=== PATIENT | female | born 1940 | race Caucasian/White ===

== ENCOUNTER 2024-02-15 11:03 | Emergency (ER) | payer OTHER, MEDICARE ==
[2024-02-15 11:12] VITALS: BMI 29.2
[2024-02-15] MEDS ORDERED: ACETAMINOPHEN INJECTION 100 ML ONE (12:39)
[2024-02-15] MEDS: ACETAMINOPHEN 1000 MG/100 ML BAG IVPB ONE (12:46)
[2024-02-15 13:44] LABS: INR 1.04 (0.83-1.09); PROTHROMBIN TIME (PATIENT) 11.7 SEC (9.7-13.0)
[2024-02-15 13:47] LABS: ACTIVATED PTT 28.2 SECONDS (25.2-36.5)
[2024-02-15 13:50] LABS: BASO % 0.3 % (0-2.0); EOS % 0.1 % (0-4.5); HEMATOCRIT 37.9 % (32.4-45.2); HEMOGLOBIN 12.3 GM/dL (10.7-15.3); LYMPH % 8.2 % (8-40); MCH 28.5 pg (25.7-33.7); MCHC 32.3 g/dl (32.0-36.0); MEAN CELL VOLUME 88.1 fl (80-96); MEAN PLT VOLUME 9.2 fl (7.5-11.1); NEUT % 83.4 % (42.8-82.8); PLATELET COUNT 191 10^3/uL (134-434); RDW 14.6 % (11.6-15.6); WHITE BLOOD COUNT 8.2 K/mm3 (4.0-10.0)
[2024-02-15 13:57] LABS: POTASSIUM 3.8 mmol/L (3.5-5.1)
[2024-02-15 14:00] LABS: CALCIUM 8.9 mg/dL (8.5-10.1)
[2024-02-15 14:01] LABS: ALBUMIN 3.6 g/dl (3.4-5.0); BLOOD UREA NITROGEN 9.6 mg/dL (7-18)
[2024-02-15 14:04] LABS: CREATININE 0.7 mg/dL (0.55-1.3)
[2024-02-15 14:05] LABS: BILIRUBIN,TOTAL 0.3 mg/dL (0.2-1); TOT PROT 7.1 g/dl (6.4-8.2)
[2024-02-15 15:19] LABS: THROAT:GRP A STREP NOT DETECTED (NOTDETECTED)
[2024-02-15] MEDS ORDERED: LIDOCAINE 4% PATCH TP ONE (15:23)
[2024-02-15] MEDS: LIDOCAINE 4% PATCH TP ONE (15:35)
[2024-02-15 16:58] VITALS: BP 138/54; PULSE 67; RESP 19; TEMP 98.2
[2024-02-15] MEDS ORDERED: LIDOCAINE PATCH REMOVAL MC SCH (22:00)
== END 2024-02-15 17:12 | disposition home or self-care (01) ==
LOC: JER 11:03
PROC: 3E033NZ Introduction of Analgesics, Hypnotics, Sedatives into Peripheral Vein, Percutaneous Approach (ICD-10-PCS; principal; 2024-02-15)
DX: U07.1 COVID-19 (principal); R55 Syncope and collapse; R05.9 Cough, unspecified; R61 Generalized hyperhidrosis; R07.81 Pleurodynia; I10 Essential (primary) hypertension; W18.30XA Fall on same level, unspecified, initial encounter
CPT/HCPCS: 0241U-QW; 36415; 70450-TC; 71046-TC-FY; 72125-TC; 72170-TC-FY; 80053; 84484; 85025; 85610; 85730; 86850; 86900; 86901; 87651; 93005; 93010; 99285-25; J0131